=== PATIENT | female | born 1935 | race Caucasian/White ===

== ENCOUNTER 2017-02-20 06:24 | Emergency (ER) | payer MEDICARE ==
--- NOTE | 2017-02-20 08:51 | RAD ---
LEFT RIBS WITH PA CHEST: Date: 02/20/17 HISTORY: Fall. Left rib pain. COMPARISON: CT of the chest from 08/01/14. FINDINGS: Linear opacities left lung base likely atelectasis or scarring. There is moderate scoliosis of the t horacolumbar spine. No pneumothorax. No significant left-sided pleural effusion. No displaced rib fr acture. Likely an old injury of the anterolateral left 10th rib. Moderate vascular calcifications of the aorta. There is a left shoulder hemiarthroplasty. IMPRESSION: 1. No acute intrathoracic abnormality. 2. No displaced left-sided rib fracture. POS: [facility]
== END 2017-02-20 10:28 | disposition home or self-care (01) ==
LOC: ERS 06:24
DX: S40.022A Contusion of left upper arm, initial encounter (principal); S20.222A Contusion of left back wall of thorax, initial encounter; W19.XXXA Unspecified fall, initial encounter

== ENCOUNTER 2018-12-14 07:23 | Observation (INO) | payer MEDICARE ==
[2018-12-14] MEDS ORDERED: Acetaminophen 500 MG TAB ONE (08:13)
[2018-12-14 08:14] LABS: #Basophils 0.1 thou/uL (0.0-0.2); #Eosinphils 0.1 thou/uL (0.0-0.7); #Lymphocytes 1.4 thou/uL (1.20-3.40); #Monocytes 0.7 thou/uL (0.11-0.59); #Neutrophils 6.3 thou/uL (1.40-6.50); %Basophils 0.7 % (0.0-1.0); %Lymphocytes 16.4 % (21.0-51.0); %Monocytes 7.7 % (0.0-10.0); %Neutrophils 74.2 % (42.0-75.0); Hemoglobin 12.4 g/dL (12.0-16.0); Mean Corpuscular HGB CONC 32.3 g/dL (32.0-36.0); Mean Corpuscular Hemoglobin 29.7 pg (27.0-31.0); Mean Corpuscular Volume 91.7 fL (78.0-98.0); Mean Platelet Volume 8.5 fL (7.4-10.4); Platelet Count 219 thou/uL (130-400); RBC Distribution Width 12.5 % (11.5-14.5); Red Blood Cell (RBC) Count 4.17 mill/uL (4.20-5.40); White Blood Cell (WBC) Count 8.4 thou/uL (4.8-10.8)
[2018-12-14 08:18] LABS: Bilirubin Negative (Negative); Blood, Urine Trace (Negative); Clarity Turbid (Clear); Glucose, Urine (Dipstick) Normal (Negative); Leukocyte Negative Leu/uL (Negative); Mucous/LPF Rare LPF (<2+); Nitrite Negative (Negative); Protein, Urine (Dipstick) 100 mg/dL (Neg-Trace); Squamous Epithelial 0-3 HPF (0-3); Urobilinogen Normal mg/dL (Less than 2)
--- NOTE | 2018-12-14 08:19 | CT ---
Exam: CT LUMBAR SPINE WITHOUT CONTRAST: HISTORY: Back pain for several days, worsening this morning. Patient is unable to get off the toilet. No reported trauma or fall. COMPARISON: None. CORRELATION: MRI lumbar spine 10/08/2011. FINDINGS: There is diffuse bone demineralization. There are 5 lumbar type vertebra. Lumbar spine vertebral body heights are maintained at L1 and L5. Mild loss of vertebral body height at L3. Mild to moderate loss of vertebral body height at L2 and L4. Sclerosis suggests a chronic process. There is no signifi cant retropulsion. Visualized mediastinum is unremarkable. Visualized lung parenchyma probably have linear opacities due to chronic change. No paraspinal mass, lymphadenopathy or hematoma. There is atherosclerosis of a nonaneurysmal aorta Sacrum appears to be intact. Vacuum joint phenomenon in both sacroiliac joints. There is no spondylolysis. There is 5.1 mm of anterolisthesis of L5 upon S1. Limited evaluation of the contents of the central spinal canal and neural foramina due to technique. T10-T11 and T11-T12: No significant central canal stenosis or significant neural foraminal narrowing. T12-L1: No significant central canal stenosis or significant foraminal narrowing. L1-L2: Generalized disc bulge with mild central canal stenosis. Bilaterally, neural foramina are can nt. L2-L3: Broad-based disc bulge, ligamentum flavum thickening, and facet hypertrophy result in mild radha tral canal stenosis. Bilaterally, neural foramina are patent. L3-L4: Broad-based disc bulge, ligamentum flavum thickening, and facet hypertrophy result in mild radha tral canal stenosis. Mild bilateral neural foraminal narrowing. L4-L5: Broad-based disc bulge, ligamentum flavum thickening and facet hypertrophy result in moderate to severe central canal stenosis. Mild to moderate bilateral neural foraminal narrowing. L5-S1: No significant central canal stenosis. Bilaterally, neural foramina are patent. IMPRESSION: 1. Remote mild to moderate compression fractures of the lumbar spine as described above. No retropuls ion 2. Moderate to severe central canal stenosis at L4-L5. Grade 1 anterolisthesis of L4 upon L5.. Transcribed Date/Time: 12/14/2018 8:35 AM
[2018-12-14 08:32] LABS: Bacteria/HPF Rare-Few HPF (None Seen)
[2018-12-14 08:36] LABS: Anion Gap 12 mmol/L (10-20); BUN (Urea Nitrogen) 13 mg/dL (9.8-20.1); Calc. Creatinine Clearance 0 mL/min (70-130); Calcium 8.7 mg/dL (7.8-10.44); Carbon Dioxide 23 mmol/L (23-31); Chloride 103 mmol/L (98-107); Estimated GFR-MDRD Greater than 90; Glucose 106 mg/dL (83-110); Sodium 134 mmol/L (136-145)
[2018-12-14] MEDS ORDERED: Ketorolac Tromethamine 30 MG/ML VIAL ONE (09:00)
[2018-12-14] MEDS ORDERED: Morphine 4 MG/ML VIAL ONE (09:18)
[2018-12-14] MEDS ORDERED: Ondansetron ODT 4 MG TAB PO PRN (11:06)
[2018-12-14] MEDS ORDERED: Acetaminophen 325 MG TAB PO PRN (11:07)
[2018-12-14] MEDS ORDERED: Enoxaparin Sodium 40 MG/0.4 ML SYRINGE SC SCH (11:30)
[2018-12-14] MEDS: Ondansetron PF 4 MG/2 ML Vial IVP PRN ×2 (12:13→19:31)
--- NOTE | 2018-12-14 12:16 | HP ---
PRIMARY CARE PHYSICIAN: Jaime Diaz MD CHIEF COMPLAINT: Worsening back pain and gait instability. HISTORY OF PRESENT ILLNESS: An 83-year-old female with past medical history significant for chronic back pain, scoliosis, and osteoarthritis as well as prior CVA with residual dysphonia, presenting to the ER due to worsening back pain associated with gait instability. The patient has been having chronic back pain, reportedly developed worsening symptom in the last few days associated with gait instability. The patient was unable to get out of her bed without difficulty. She finally managed to get out of her bed and to the toilet, but was unable to get up. There was no associated urinary incontinence or fecal incontinence. The back pain is said to be severe with intensity of 8 to 10/10 with radiation down the both lower extremities. She also has chronic numbness of both lower extremities. The patient was treated in the ER with morphine, ketorolac, and acetaminophen with some improvement, but she however was found to be physically deconditioned and with severe gait instability, hence was admitted for further evaluation and treatment. More so evaluation with CT scan of the lumbar spine showed moderate compression fracture of the lumbar spine as well as hsddrgev-il-yyzhet central canal stenosis at L4-L5 with grade 1 anterolisthesis of L4 upon L5. Neurosurgery consult has been requested. The patient had an episode of emesis here after treatment, but denied prior nausea and vomiting. She also denied dysuria, urinary incontinence, urinary retention, abdominal pain, fever, chest pain, palpitation, headache, new focal weakness, or change in vision. PAST MEDICAL HISTORY: 1. Scoliosis. 2. Chronic back pain. 3. Lumbar spondylosis, status post prior surgery. 4. Prior cerebrovascular accident with residual dysphonia. 5. Osteoarthritis. PAST SURGICAL HISTORY: 1. Lumbar spine surgery. 2. Appendectomy. 3. Left shoulder surgery. 4. Right ankle surgery. FAMILY HISTORY: Reviewed, but noncontributory. SOCIAL HISTORY: The patient lives alone. She, however, has a caregiver, who comes to help her daily. She denied alcohol, smoking, or recreational drug use. The patient's daughter in [place] is the surrogate decision maker. The patient also does not want to be resuscitated. ALLERGIES: NO KNOWN DRUG ALLERGIES REPORTED. HOME MEDICATIONS: Multivitamin capsules once daily. REVIEW OF SYSTEMS: Twelve-point review of system performed was negative other than pertinent positives and negatives included in the History of Present Illness. PHYSICAL EXAMINATION: VITAL SIGNS: Most recent vitals are as follows; blood pressure 156/73, pulse 98, respiratory rate 18, temperature 98.1, pain 5/10, and SpO2 of 99% on room air. GENERAL: Elderly female, in no obvious distress. Afebrile. Anicteric. Acyanotic. HEENT: Normocephalic, atraumatic. Pupils are reacting to light. Oral mucosa is moist. NECK: Supple, nontender with good range of motion. No masses or lymphadenopathy appreciated. CARDIOVASCULAR: Regular rhythm and rate with normal heart sounds 1 and 2. Questionable soft systolic murmur is noted. RESPIRATORY: Good air entry bilateral with few transmitted sounds. No obvious crackle or rhonchi was appreciated. GASTROINTESTINAL: Full, soft, nontender, and nondistended with normal bowel sounds. EXTREMITIES: Both lower extremities are full, without obvious edema. Scar of prior right ankle surgery noted. Flatfoot of left foot noted. NEUROLOGIC: Conscious and alert and oriented x3 with appropriate mental status. Cranial nerves II through XII are grossly intact. The patient has dysarthria, which is chronic. Power is about 4/5 in all limbs. Sensation is decreased on both lower extremities. DIAGNOSTIC DATA: CBC showed WBC count of 8.4, hemoglobin of 12.4, MCV of 91.7, and platelet of 219. BMP showed sodium 134, potassium 4.0, chloride 103, CO2 of 23, BUN 13, creatinine 0.62, glucose 106, and calcium 8.7. Urinalysis showed turbid yellow urine with pH of 5.5, specific gravity of 1.025, urine protein 100 mg/dL, trace ketones, trace blood, negative nitrite, bilirubin, and leukocyte esterase. Microscopy showed RBC 7 to 10 and WBC [address] Lumbar spine [address] without contrast showed diffuse bone demineralization. There is mild loss of vertebral body height at L3, dkve-xn-ioqgexbb loss of vertebral body height at L2 and L4. Sclerosis suggest a chronic process. There is no significant retropulsion. Sacrum appears to be intact, but there is a vacuum joint phenomenon in both sacral joints. There is 5.1 mm of anterolisthesis of L5 upon S1. Vkenfndj-vm-chgyvo central canal stenosis at L4-L5 with grade 1 anterolisthesis of L4 upon L5. ASSESSMENT: 1. Acute worsening of chronic back pain. 2. Lumbar spondylosis as well as grade 1 L4-L5 anterolisthesis. 3. Lzszulnd-iq-sjjnls central canal stenosis at L4-L5. 4. Remote ecmc-ib-atlhyofb compression fracture of lumbar spine. 5. Prior cerebrovascular accident with residual dysarthria. 6. Chronic scoliosis. PLAN: 1. Admit the patient for pain management. We will also get Neurosurgery consult in view of the rlddagpj-oj-eynoze central canal stenosis at L4-L5. 2. We will also get physical and occupational therapy evaluation and treatment. 3. Diet as tolerated will be provided. 4. DVT prophylaxis with Lovenox. 5. Code status: Do not resuscitate. The patient's daughter, Betsy, is the surrogate decision maker. Job ID: [id number]
[2018-12-14 13:46] VITALS: BMI 30.9
[2018-12-14] MEDS: HYDROcodone/Acetaminophen 5/325 mg Tablet PO PRN (19:55)
[2018-12-14] MEDS: Famotidine 20 MG TAB PO SCH (21:12)
[2018-12-14] MEDS: Famotidine/PF 20 mg/2ml Vial SLOW IVP SCH (21:12)
[2018-12-14] MEDS: Lidocaine Patch Removal 1 EACH TOP SCH (23:34)
--- NOTE | 2018-12-15 00:20 | CON ---
DATE OF CONSULTATION: HISTORY: Ms. Mora is an 83-year-old female who came to the emergency department this morning for back pain. She states that she has had back pain for quite some time and getting worse in the last week. This morning, however, she was able to get out of bed, make it to the bathroom and after voiding, she was unable to get back up due to this pain. She states that she had no difficulty with bowel or bladder function. She has chronic numbness in bilateral lower extremities for some years. She states that most of her pain is in the lumbar region and the lumbosacral area. She denies any radicular pain. Neurosurgery has been consulted for CT imaging of the lumbar spine that shows 3 remote compression fractures L2, L3, L4, and spondylolisthesis at L4-5 with some stenosis at that level. When I see Ms. Mora in her hospital bed, she is resting comfortably. She is in good spirits. She complains only of lumbar back pain at this time and is tender at approximately L4-5 and lumbosacral junction. She denies any leg pain today, but states that she has had numbness in bilateral legs for some years now. She has appropriate joint position sense and notes when I am touching her legs, she has sensation to light touch and equal bilaterally. The patient denies any headache. She is nauseous and has vomited a few times. She denies any abdominal pain, cough, or chest pain. No other abdominal symptoms. REVIEW OF SYSTEMS: A 10-point review of systems is completed and is negative other than stated in the HPI. ALLERGIES: NO KNOWN DRUG ALLERGIES. CURRENT MEDICATIONS: Vitamins, multivitamins. PAST MEDICAL HISTORY: Cardiovascular accident with residual dysphonia, scoliosis, chronic back pain, lumbar spondylosis, and osteoarthritis. PAST SURGICAL HISTORY: Lumbar spinal surgery, appendectomy, left shoulder surgery, right ankle surgery. SOCIAL HISTORY: The patient lives alone. Has a caregiver who comes to help her daily. She denies alcohol, smoking, or illicit drug use and her daughter lives in [place]. PHYSICAL EXAMINATION: VITAL SIGNS: Temperature 97.8, heart rate 93, respirations 20, O2 sats 94% on room air. CONSTITUTIONAL: The patient is alert and oriented x3. Speech is spontaneous and fluent. She is afebrile. Does not appear to be in any visible distress and nontoxic appearing. HEENT. Head is normocephalic and atraumatic. Pupils are equal, round, and reactive to light. Extraocular movements are intact. Hearing is intact. Moist mucous membranes. RESPIRATIONS: Normal work of breathing on room air. Symmetric chest rise. EXTREMITIES: The patient has normal range of motion in all 4 extremities. 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 NEUROLOGIC: The patient is awake, alert, and oriented x3. Speech is fluent, but somewhat slow and simple. Cranial nerves are tested and intact. There are no lateralizing motor or sensory deficits noted. No clonus or Babinski's. IMAGING DATA: CT of the lumbar spine shows degenerative changes with rrua-nd-aurwodze compression fractures, remote L2, 3, 4 with anterolisthesis at L4-5 grade 1 with some moderate central canal stenosis at that level. ASSESSMENT AND PLAN: She is an 83-year-old female with chronic low back issues as well as new onset of worsening back pain and weakness. From a neurosurgical standpoint, surgery is not recommended at this time. For her pain and lower extremity weakness, we recommend getting our Pain Management fellows to do injection at the L4-5 and physical therapy to work with her. These could be done while she is admitted during this hospital course or as an outpatient. Rehab placement may be a good option for her as well. She may also follow up with us as an out pt. If there are any further questions, please contact Neurosurgery. Job ID: [id number] MTDD
[2018-12-15] MEDS: HYDROcodone/Acetaminophen 5/325 mg Tablet PO PRN ×2 (05:23→19:58)
[2018-12-15] MEDS: Famotidine 20 MG TAB PO SCH ×2 (08:22→19:59)
[2018-12-15] MEDS: Enoxaparin Sodium 40 MG/0.4 ML SYRINGE SC SCH (08:22)
[2018-12-15] MEDS: Famotidine/PF 20 mg/2ml Vial SLOW IVP SCH ×2 (08:27→19:59)
[2018-12-15] MEDS ORDERED: Prevnar 13-Val Conj/PF 0.5 ML SYRINGE IM ONE (14:30)
[2018-12-15] MEDS: Lidocaine 5% Patch TD SCH (15:42)
--- NOTE | 2018-12-15 19:43 | PDOC.HOSPP ---
- Subjective Encounter Date: 12/15/18 Encounter Time: 15:41 Subjective: 83 y/o female admitted due to worsening back pain associated with weakness and gait instability. No new problem. Getting PT. - Objective Vital Signs & Weight: Vital Signs (12 hours) Temp Pulse Resp BP Pulse Ox 12/15/18 16:00 98.1 F 96 18 159/84 H 92 L 12/15/18 11:00 98.0 F 91 18 135/72 99 12/15/18 08:00 98.0 F 92 18 145/70 H 92 L Weight Weight 174 lb 8 oz I&O: 12/14/18 12/15/18 12/16/18 06:59 06:59 06:59 Intake Total 160 Balance 160 Result Diagrams: 12/14/18 08:02 12/14/18 08:02 Hospitalist ROS - Medication Medications: Active Medications Generic Name Dose Route Start Last Admin Trade Name Freq PRN Reason Stop Dose Admin Hydrocodone Bitart/Acetaminophen 1 tab 12/14/18 11:30 12/15/18 05:23 [place] 5/325 PO 1 tab Q4H PRN Administration Moderate Pain (4-6) Enoxaparin Sodium 40 mg 12/15/18 09:00 12/15/18 08:22 Lovenox SC 40 mg 0900 MAMIE Administration Famotidine 20 mg 12/14/18 21:00 12/15/18 08:27 Pepcid SLOW IVP Not Given Q12HR MAMIE Famotidine 20 mg 12/14/18 21:00 12/15/18 08:22 Pepcid PO 20 mg BID MAMIE Administration Lidocaine 1 patch 12/15/18 12:00 12/15/18 15:42 Lidoderm 5% Patch TD 1 patch 1200 MAMIE Administration Miscellaneous Medication 1 each 12/14/18 23:59 12/14/18 23:34 Lidocaine Patch Removal TOP 1 each 2359 MAMIE Administration Sodium Chloride 10 ml 12/14/18 21:00 12/15/18 08:23 Flush - Normal Saline IVF 10 ml Q12HR MAMIE Administration - Exam General Appearance: awake alert Eye: anicteric sclera ENT: normocephalic atraumatic Neck: supple, symmetric, no JVD Heart: RRR Respiratory: no wheezes, no rales, no ronchi, normal chest expansion Gastrointestinal: soft, non-tender, non-distended, normal bowel sounds Extremities: no cyanosis, no edema Neurological: CN's grossly intact, no new deficit Neurological - other findings: dysarthria noted Psychiatric: normal affect, A&O x 3 Hosp A/P (1) Acute exacerbation of chronic low back pain Code(s): M54.5 - LOW BACK PAIN; G89.29 - OTHER CHRONIC PAIN Status: Acute (2) Physical deconditioning Code(s): R53.81 - OTHER MALAISE Status: Acute (3) Lumbar spondylolysis Code(s): M43.06 - SPONDYLOLYSIS, LUMBAR REGION Status: Acute (4) Spondylolisthesis Code(s): M43.10 - SPONDYLOLISTHESIS, SITE UNSPECIFIED Status: Acute (5) Gait instability Code(s): R26.81 - UNSTEADINESS ON FEET Status: Acute - Plan Continue analgesic. Continue PT. Consult rehab screening
[2018-12-15] MEDS: Lidocaine Patch Removal 1 EACH TOP SCH (23:56)
[2018-12-16] MEDS: Famotidine/PF 20 mg/2ml Vial SLOW IVP SCH ×3 (07:58→20:25)
[2018-12-16] MEDS: Enoxaparin Sodium 40 MG/0.4 ML SYRINGE SC SCH (07:58)
[2018-12-16] MEDS: Famotidine 20 MG TAB PO SCH ×3 (07:59→20:25)
[2018-12-16 08:26] LABS: #Basophils 0.1 thou/uL (0.0-0.2); #Eosinphils 0.2 thou/uL (0.0-0.7); #Lymphocytes 1.8 thou/uL (1.20-3.40); #Monocytes 0.7 thou/uL (0.11-0.59); #Neutrophils 5.3 thou/uL (1.40-6.50); %Basophils 0.8 % (0.0-1.0); %Eosinophils 2.1 % (0.0-10.0); %Lymphocytes 22.5 % (21.0-51.0); %Monocytes 8.5 % (0.0-10.0); %Neutrophils 66.1 % (42.0-75.0); Hemoglobin 12.2 g/dL (12.0-16.0); Mean Corpuscular Hemoglobin 29.8 pg (27.0-31.0); Mean Corpuscular Volume 90.4 fL (78.0-98.0); Mean Platelet Volume 8.5 fL (7.4-10.4); Platelet Count 200 thou/uL (130-400); RBC Distribution Width 12.4 % (11.5-14.5); Red Blood Cell (RBC) Count 4.08 mill/uL (4.20-5.40); White Blood Cell (WBC) Count 8.1 thou/uL (4.8-10.8)
[2018-12-16 08:42] LABS: Anion Gap 12 mmol/L (10-20); BUN (Urea Nitrogen) 8 mg/dL (9.8-20.1); Calc. Creatinine Clearance 81 mL/min (70-130); Carbon Dioxide 26 mmol/L (23-31); Chloride 102 mmol/L (98-107); Estimated GFR-MDRD 84; Glucose 129 mg/dL (83-110); Potassium 3.6 mmol/L (3.5-5.1); Sodium 136 mmol/L (136-145)
[2018-12-16] MEDS: Lidocaine 5% Patch TD SCH (12:05)
[2018-12-16] MEDS ORDERED: Bisacodyl 10 MG SUPP PR SCH (17:00)
--- NOTE | 2018-12-16 19:27 | PDOC.HOSPP ---
- Subjective Encounter Date: 12/16/18 Encounter Time: 12:26 Subjective: 83 y/o female admitted due to worsening back pain associated with weakness and gait instability. Complaining of constipation. Getting PT. - Objective Vital Signs & Weight: Vital Signs (12 hours) Temp Pulse Resp BP BP Pulse Ox 12/16/18 17:00 165/60 H 94 L 12/16/18 16:00 98.3 F 103 H 20 147/81 H 91 L 12/16/18 11:16 98.0 F 100 20 147/59 H 94 L 12/16/18 08:30 148/75 H 12/16/18 07:53 98.3 F 93 19 172/65 H 93 L Weight Weight 174 lb 8 oz I&O: 12/15/18 12/16/18 12/17/18 06:59 06:59 06:59 Intake Total 160 130 235 Balance 160 130 235 Result Diagrams: 12/16/18 08:13 12/16/18 08:13 Hospitalist ROS - Medication Medications: Active Medications Generic Name Dose Route Start Last Admin Trade Name Freq PRN Reason Stop Dose Admin Hydrocodone Bitart/Acetaminophen 1 tab 12/14/18 11:30 12/15/18 19:58 [place] 5/325 PO 1 tab Q4H PRN Administration Moderate Pain (4-6) Enoxaparin Sodium 40 mg 12/15/18 09:00 12/16/18 07:58 Lovenox SC 40 mg 0900 MAMIE Administration Famotidine 20 mg 12/14/18 21:00 12/16/18 08:22 Pepcid SLOW IVP Not Given Q12HR MAMIE Famotidine 20 mg 12/14/18 21:00 12/16/18 08:04 Pepcid PO 20 mg BID MAMIE Administration Lidocaine 1 patch 12/15/18 12:00 12/16/18 12:05 Lidoderm 5% Patch TD 1 patch 1200 MAMIE Administration Miscellaneous Medication 1 each 12/14/18 23:59 12/15/18 23:56 Lidocaine Patch Removal TOP 1 each 2359 MAMIE Administration Sodium Chloride 10 ml 12/14/18 21:00 12/16/18 07:59 Flush - Normal Saline IVF 10 ml Q12HR MAMIE Administration - Exam General Appearance: awake alert Eye: anicteric sclera ENT: normocephalic atraumatic Neck: symmetric, no JVD Heart: RRR Respiratory: no wheezes, no ronchi, normal chest expansion, no tachypnea Gastrointestinal: soft, non-tender, non-distended, normal bowel sounds Extremities: no cyanosis, no edema Neurological: CN's grossly intact Neurological - other findings: dysarthria Psychiatric: A&O x 3 Hosp A/P (1) Acute exacerbation of chronic low back pain Code(s): M54.5 - LOW BACK PAIN; G89.29 - OTHER CHRONIC PAIN Status: Acute (2) Physical deconditioning Code(s): R53.81 - OTHER MALAISE Status: Acute (3) Lumbar spondylolysis Code(s): M43.06 - SPONDYLOLYSIS, LUMBAR REGION Status: Acute (4) Spondylolisthesis Code(s): M43.10 - SPONDYLOLISTHESIS, SITE UNSPECIFIED Status: Acute (5) Gait instability Code(s): R26.81 - UNSTEADINESS ON FEET Status: Acute (6) Constipation Code(s): K59.00 - CONSTIPATION, UNSPECIFIED Status: Acute - Plan Start bowel regimen Continue analgesic and PT. Anticipate discharge to rehab. Awaiting insurance approval.
[2018-12-16] MEDS: Polyethylene Glycol 3350 17 GM Packet PO SCH (20:25)
[2018-12-16] MEDS: HYDROcodone/Acetaminophen 5/325 mg Tablet PO PRN (20:25)
[2018-12-17] MEDS: Lidocaine Patch Removal 1 EACH TOP SCH (00:04)
[2018-12-17] MEDS: Famotidine 20 MG TAB PO SCH (08:34)
[2018-12-17] MEDS: Polyethylene Glycol 3350 17 GM Packet PO SCH (08:34)
[2018-12-17] MEDS: Enoxaparin Sodium 40 MG/0.4 ML SYRINGE SC SCH (08:34)
[2018-12-17] MEDS: Famotidine/PF 20 mg/2ml Vial SLOW IVP SCH ×2 (08:35→20:12)
[2018-12-17] MEDS ORDERED: Ondansetron PF 4 MG/2 ML Vial IVP PRN (10:22)
[2018-12-17] MEDS ORDERED: Ondansetron ODT 4 MG TAB PO PRN (10:23)
[2018-12-17] MEDS: Lidocaine 5% Patch TD SCH (12:08)
--- NOTE | 2018-12-17 14:56 | PDOC.EVN ---
Event Note - Event Note Event Note: Discharged to rehab. Summary dictated. #[id number]
--- NOTE | 2018-12-17 15:43 | DIS ---
DATE OF ADMISSION: 12/14/2018 DATE OF DISCHARGE: 12/17/2018 PRIMARY CARE PHYSICIAN: Jaime Diaz MD DISCHARGE DIAGNOSES: 1. Acute exacerbation of chronic low back pain. 2. Lumbar spondylosis. 3. Lumbar spondylolisthesis. 4. Spinal canal stenosis. 5. Physical deconditioning. 6. Gait instability. 7. Constipation. 8. Scoliosis. CONSULTS: Neurosurgery. HOSPITAL COURSE: An 83-year-old female with known history of scoliosis and chronic back pain, admitted due to worsening back pain associated with gait instability and weakness. Evaluation with CT scan of the back showed lumbar spondylosis with L4-5 anterolisthesis associated with moderate spinal canal stenosis. The patient was treated with analgesics and later was seen by Neurosurgery, who recommended pain management as well as physical rehabilitation. The patient was seen by PT and was felt to be in need of acute rehabilitation and was subsequently discharged to inpatient rehab for further restorative therapy. Hospital course was complicated by constipation and nausea, which was treated symptomatically with improvement. PHYSICAL EXAMINATION: VITAL SIGNS: Temperature 98.0, pulse 98, respiratory rate 18, SpO2 of 93% on room air, and blood pressure is 122/59. GENERAL: Elderly female, in no distress. Afebrile. Anicteric. Acyanotic. HEENT: Normocephalic, atraumatic. Oral mucosa is moist. CARDIOVASCULAR: Regular rhythm and rate. RESPIRATORY: Fair air entry bilaterally with no obvious crackle or rhonchi or use of accessory muscles. GI: Soft, nontender, and nondistended with normal bowel sounds. EXTREMITIES: Grossly normal looking, atraumatic, with no obvious edema. Scar of prior right ankle surgery noted. 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 Dysarthria from prior CVA noted. The patient moves all extremities. DISCHARGE CONDITION: Improved. DISCHARGE DISPOSITION: Inpatient rehab. DISCHARGE MEDICATIONS: See discharge med rec. Job ID: [id number]
[2018-12-17 20:59] VITALS: BP 149/74; TEMP 98.4
== END 2018-12-17 20:58 ==
LOC: ERS 07:23 → T4-B 09:15 → UNDODISOB 12-17 17:32
PROVIDERS: ADMIT Internal Medicine Nephrology; ATTEND Internal Medicine Nephrology
DX: G89.29 Other chronic pain (principal); M54.5 Low back pain; M47.816 Spondylosis without myelopathy or radiculopathy, lumbar region; M43.16 Spondylolisthesis, lumbar region; M48.061 Spinal stenosis, lumbar region without neurogenic claudication; R53.81 Other malaise; R26.81 Unsteadiness on feet; K59.00 Constipation, unspecified; M41.9 Scoliosis, unspecified; M19.90 Unspecified osteoarthritis, unspecified site; I69.398 Other sequelae of cerebral infarction; R49.0 Dysphonia; S32.009A Unspecified fracture of unspecified lumbar vertebra, initial encounter for closed fracture
CPT/HCPCS: 51701; 72131; 80048 ×2; 85025 ×2; 87086; 96372 ×4; 96374; 96375 ×2; 96376; 97110 ×2; 97139 ×3; 97530 ×3; 99285; G0378 ×5; 36415; 81003; 81015; A4353; J1650; J1885; J2270; J2405; Q0162; S0028

== ENCOUNTER 2019-02-18 10:04 | Outpatient (CLI) | payer MEDICARE, OTHER ==
--- NOTE | 2019-02-18 11:09 | ULT ---
SONOGRAM ABDOMEN COMPLETE: HISTORY: Abdominal pain. Nausea. FINDINGS: Multiple echogenic shadowing stones within the gallbladder lumen. No gallbladder wall thickening or pericholecystic fluid. The common duct is 0.3 cm. Liver unremarkable without focal mass or infrahep atic biliary dilatation. Cyst at the mid portion left kidney measures up to 5.2 cm. No hydronephros is. The spleen, right kidney, and visualized portions of the abdominal aorta, IVC, and pancreas have a normal appearance. IMPRESSION: 1. Cholelithiasis. No evidence of acute biliary obstruction. 2. Large left renal cyst. No aggressive abnormalities are demonstrated. POS: [facility]
== END 2019-02-18 10:05 | disposition home or self-care (01) ==
LOC: SCSULT 10:04
PROVIDERS: ATTEND Internal Medicine
DX: R11.0 Nausea (principal); K80.20 Calculus of gallbladder without cholecystitis without obstruction; N28.1 Cyst of kidney, acquired
CPT/HCPCS: 93975

== ENCOUNTER 2019-03-02 09:28 | Outpatient (CLI) | payer MEDICARE ==
--- NOTE | 2019-03-02 10:47 | CT ---
CT Abdomen Pelvis W Con: 03/02/2019 12:00 AM CLINICAL INFORMATION: Nausea for 6 months COMPARISON: None. TECHNIQUE: Multiple contiguous axial images were obtained and a CT of the abdomen and pelvis with IV contrast. Oral contrast was administered. Coronal and sagittal reformats were performed. FINDINGS: Lower Chest: within normal limits. Abdomen: Liver: within normal limits. Bile Ducts: Normal caliber. Gallbladder: No calcified gallstones. Normal caliber wall. Pancreas: within normal limits. Spleen: within normal limits. Adrenals: within normal limits. Kidneys: 4.8 cm left renal cyst. Other smaller hypodensities in the left kidney also likely represent cysts. Pelvis: Reproductive Organs: No pelvic masses. Ureters: within normal limits. Bladder: within normal limits. Peritoneum: No ascites or free air, no fluid collection. Bowel: Normal caliber. Scattered diverticula in the colon. Mesentery and Retroperitoneum: No enlarged mesenteric or retroperitoneal lymph nodes. Vessels: Atherosclerotic calcifications. Abdominal Wall: within normal limits. Bones: Degenerative changes in the spine. IMPRESSION: 1. No evidence of acute intraabdominal or pelvic abnormality. 2. Left renal cysts
[2019-03-02 10:50] LABS: Bilirubin Negative (Negative); Blood, Urine Small (Negative); Clarity Slightly Cloudy (Clear); Glucose, Urine (Dipstick) Negative (Negative); Leukocyte Negative (Negative); Nitrite Negative (Negative); Protein, Urine (Dipstick) Trace mg/dL (Neg-Trace); Urobilinogen 0.2 mg/dL (Less than 2)
[2019-03-02 10:57] LABS: Bacteria/HPF None Seen HPF (None Seen); RBC/HPF 0-3 HPF (0-3); WBC/HPF 0-3 HPF (0-3)
== END 2019-03-02 09:29 | disposition home or self-care (01) ==
LOC: SCSCT 09:28
PROVIDERS: ATTEND Physician Assistant Medical
DX: R10.31 Right lower quadrant pain (principal); R10.32 Left lower quadrant pain; R11.0 Nausea; K80.20 Calculus of gallbladder without cholecystitis without obstruction; K59.00 Constipation, unspecified; N28.1 Cyst of kidney, acquired
CPT/HCPCS: 74177; 81001; 87086

== ENCOUNTER 2019-03-22 07:48 | Outpatient (CLI) | payer MEDICARE ==
--- NOTE | 2019-03-22 11:15 | NM ---
HEPATOBILIARY SCAN: HISTORY:Nausea RADIOPHARMACEUTICAL: 5.5 mCi Technetium 99m Mebrofenin injected intravenously FINDINGS: There is normal tracer extraction by the liver with normal excretion into the biliary tracts and smal l bowel loops and normal filling of the gallbladder. The calculated gallbladder ejection fraction following an oral fatty meal measures 75%. IMPRESSION:Normal exam.
== END 2019-03-22 07:49 | disposition home or self-care (01) ==
LOC: NM 07:48
PROVIDERS: ATTEND Internal Medicine
DX: R11.0 Nausea (principal); K80.20 Calculus of gallbladder without cholecystitis without obstruction
CPT/HCPCS: 78227; A9537